=== PATIENT | male | born 1975 | race American Indian/Alaskan Native ===

== ENCOUNTER 2019-06-07 05:01 | Emergency (ER) | payer MEDICAID ==
[2019-06-07] MEDS ORDERED: SUDAFED PO PRN (05:17)
[2019-06-07] MEDS ORDERED: TORADOL IV ONE (05:17)
[2019-06-07] MEDS ORDERED: BRETHINE SUB-Q ONE (05:17)
[2019-06-07] MEDS ORDERED: NACL 0.9% 1000 ML 1,000 ML IV ONE (05:17)
--- NOTE | 2019-06-07 05:28 | Event Note ---
ED Screening Note Date of service: 06/07/19 Time: 05:27 ED Screening Note: This initial assessment/diagnostic orders/clinical plan/treatment(s) is/are subject to change based on patients health status, clinical progression and re- assessment by fellow clinical providers in the ED. Further treatment and workup at subsequent clinical providers discretion. Patient/guardian urged not to elope from the ED as their condition may be serious if not clinically assessed and managed. Initial orders include: Patient is a 44-year-old -[place] male whose presenting with priapism. Patient is anorectic pains for approximately 8 hours after taking pills. Patient states "this may have been someone else's pill I don't know exactly what is". The patient is started on terbutaline, Sudafed, IV fluids. We'll wait to see if conservative measures will help with the patient's priapism and if it does not more aggressive therapies will be utilized.
--- NOTE | 2019-06-07 06:09 | Emergency Department Report ---
ED Male HPI - General Chief complaint: Urogenital-Male Stated complaint: ERECTION THAT WONT STOP Time Seen by Provider: 06/07/19 06:05 Source: patient Mode of arrival: Ambulatory Limitations: No Limitations - History of Present Illness Initial comments: She is a 44-year-old male that presents emergency room with complaints of erection 7 hours. Patient states he took a pill is not sure what it is. Patient states he can't murmur the name of the pill. Patient states that he's had this erection and it has not resolved. Patient states the pain is 10 out of 10. Patient states the pain is worse with palpation and better with not touching and rest. Patient denies chest pain shortness of breath. Patient denies other symptoms. Patient states that her abdomen is performed. Patient denies past medical history. Patient denies allergies. MD Complaint: other -: Sudden Location: penis Severity: severe Severity scale (0 -10): 10 Quality: sharp, stabbing Consistency: constant Improves with: rest Worsens with: palpation, movement swelling. denies: discharge, mass, rash, urinary retention, blood in urine, dysuria, fever, nausea/vomiting, incontinence - Related Data Previous Rx's Medication Instructions Recorded Last Taken Type Amoxicillin/K Clav Tab [Augmentin 1 tab PO Q12HR #20 tab 06/14/15 Unknown Rx 875MG TAB] HYDROcodone/APAP 5-325 [Gary 1 each PO Q6HR PRN #14 tablet 06/14/15 Unknown Rx 5/325] Allergies Allergy/AdvReac Type Severity Reaction Status Date / Time No Known Allergies Allergy Verified 06/13/15 21:23 ED Review of Systems ROS: Stated complaint: ERECTION THAT WONT STOP Other details as noted in HPI Constitutional: denies: chills, fever Eyes: denies: eye pain, eye discharge, vision change ENT: denies: ear pain, throat pain Respiratory: denies: cough, shortness of breath, wheezing Cardiovascular: denies: chest pain, palpitations Endocrine: no symptoms reported Gastrointestinal: denies: abdominal pain, nausea, diarrhea Genitourinary: denies: urgency, dysuria Musculoskeletal: denies: back pain, joint swelling, arthralgia Skin: denies: rash, lesions Neurological: denies: headache, weakness, paresthesias Psychiatric: denies: anxiety, depression Hematological/Lymphatic: denies: easy bleeding, easy bruising ED Past Medical Hx - Past Medical History Previous Medical History?: No - Surgical History Past Surgical History?: No - Family History Family history: no significant - Social History Smoking Status: Current Every Day Smoker Substance Use Type: Alcohol, Marijuana - Medications Home Medications: Home Medications Medication Instructions Recorded Confirmed Last Taken Type Amoxicillin/K Clav Tab [Augmentin 1 tab PO Q12HR #20 tab 06/14/15 Unknown Rx 875MG TAB] HYDROcodone/APAP 5-325 [Gary 1 each PO Q6HR PRN #14 tablet 06/14/15 Unknown Rx 5/325] ED Physical Exam - General Limitations: No Limitations General appearance: alert, in no apparent distress - Head Head exam: Present: atraumatic, normocephalic - Eye Eye exam: Present: normal appearance - ENT ENT exam: Present: mucous membranes moist - Neck Neck exam: Present: normal inspection - Respiratory Respiratory exam: Present: normal lung sounds bilaterally. Absent: respiratory distress, wheezes, rales - Cardiovascular Cardiovascular Exam: Present: regular rate, normal rhythm. Absent: systolic murmur, diastolic murmur, rubs, gallop - GI/Abdominal GI/Abdominal exam: Present: soft, normal bowel sounds - Rectal Rectal exam: Present: deferred - External exam: Present: swelling, other (penile tenderness an erection noted) - Extremities Exam Extremities exam: Present: normal inspection - Back Exam Back exam: Present: normal inspection - Neurological Exam Neurological exam: Present: alert, oriented X3 - Psychiatric Psychiatric exam: Present: normal affect, normal mood - Skin Skin exam: Present: warm, dry, intact, normal color. Absent: rash ED Course Vital Signs 06/07/19 06/07/19 05:09 07:35 Temperature 98.7 F Pulse Rate 52 L 56 L Respiratory 20 16 Rate Blood Pressure 126/81 Blood Pressure 108/76 [Right] O2 Sat by Pulse 96 97 Oximetry - Reevaluation(s) Reevaluation #1: Evaluation done. Patient has been given medication with no relief. Phenylephrine will be ordered. 06/07/19 06:20 Reevaluation #2: Procedure done to manage priapism. Aspiration done along with phenylephrine injection. 6 mL of phenylephrine used. Patient tolerated procedure well. See procedure note. Patient approximately 60% reduced. Patient denies pain after procedure 06/07/19 07:10 Reevaluation #3: Patient still significantly reduced 06/07/19 07:27 Reevaluation #4: Patient denies pain. Patient is still significantly reduced. I discussed all findings with patient. Patient is stable for discharge. Patient will be discharged home. Patient agrees with plan of care. Patient given discharge instructions. Patient voiced understanding discharge instructions 06/07/19 08:00 - Penile Procedure Consent Obtained: verbal consent, written consent Time Out Performed: Yes Indication: priapism management Procedural Sedation: No Sedation/Analgesia: none Local Anesthesia Used: Penile Nerve Block Reduction of Paraphimosis: manual pressure Priapism Management: aspiration, phenylephrine injection Complications: none Patient Tolerated Procedure: well, no complications ED Medical Decision Making - Medical Decision Making She is a 44-year-old male [facility] emergency room with complaints of painful erection. Patient found have a priaprism. Patient had priaprism management done with aspiration and injection of phenylephrine. Patient responded well to procedure. Patient's priapism reduce approximately 60-70%. Patient was painless after procedure. She was flaccid upon discharge. Patient is stable for discharge. Patient discharged home. Patient given discharge instructions. Patient instructed to follow up with primary care and urologist as soon as possible. - Differential Diagnosis priaprism Drug reaction Critical Care Time: Yes Critical care attestation.: If time is entered above; I have spent that time in minutes in the direct care of this critically ill patient, excluding procedure time. Critical Care Time: 35 minutes ED Disposition Clinical Impression: Priapism, drug-induced Disposition: DC-01 TO HOME OR SELFCARE Is pt being admited?: No Does the pt Need Aspirin: No Condition: Stable Instructions: Priapism (ED) Additional Instructions: Patient to follow-up with primary care in 2-3 days. Patient to follow-up with urologist within 2 days. Patient to return to ER physician worsens. Patient to rest. Patient to avoid taking drugs or the same medication. Patient increase water. Patient to avoid sex until cleared by urologist. Referrals: PRIMARY CARE, [Primary Care Provider] - LALO CLEMENT MD [Staff Physician] - CHARITO Time of Disposition: 08:05
[2019-06-07] MEDS ORDERED: NEO-SYNEPHRINE 1 MG, NACL P/F VIAL (10 ML) 9.9 ML IJ**NOT IV ONE (06:20)
[2019-06-07] MEDS ORDERED: XYLOCAINE 1% 20 mL ONE (06:56)
[2019-06-07] MEDS ORDERED: NEO SYNEPHRINE 1 MG in NACL 0.9% 9.9 ML IV ONE (07:00)
[2019-06-07 07:38] VITALS: BP 108/76
== END 2019-06-07 08:13 | disposition home or self-care (01) ==
LOC: ED 05:01
DX: N48.33 Priapism, drug-induced (principal); F17.200 Nicotine dependence, unspecified, uncomplicated; F12.10 Cannabis abuse, uncomplicated; Z79.899 Other long term (current) drug therapy
CPT/HCPCS: 54220; 96372; 96374; 99282; J1885; J2370; J3105; J7030